=== PATIENT | male | born 1970 | race Caucasian/White ===

== ENCOUNTER → 2023-05-29 07:53 | Outpatient (REF) | payer BC, SELFPAY | LOC: DHSLP 07:53 | PROVIDERS: ATTENDING PHYSICIAN Internal Medicine; FAMILY PHYSICIAN Internal Medicine | DX: G47.33 Obstructive sleep apnea (adult) (pediatric) (principal) | CPT/HCPCS: 95800 ==

== ENCOUNTER → 2023-09-16 16:33 | Outpatient (REF) | payer BC, SELFPAY | LOC: REG 16:33 | PROVIDERS: ATTENDING PHYSICIAN Internal Medicine | DX: R53.83 Other fatigue (principal); W57.XXXS Bitten or stung by nonvenomous insect and other nonvenomous arthropods, sequela | CPT/HCPCS: 36415; 86618 ==

== ENCOUNTER → 2024-01-22 07:18 | Outpatient (REF) | payer BC, SELFPAY ==
[2024-01-22 08:41] LABS: % Eosinophils 3.5 % (0-6); % Immature Granulocytes 0.4 % (0-0.5); % Lymphocytes 19.9 % (20.5-51.1); % Monocytes 6.8 % (1.7-9.3); % Neutrophils 68.4 % (42.2-75.2); Absolute Basophils 0.1 10^3/uL (0-0.2); Absolute Eosinophils 0.2 10^3/uL (0-0.7); Absolute Monocytes 0.4 10^3/uL (0.1-0.6); Absolute Neutrophils 3.5 10^3/uL (1.4-6.5); Hematocrit 43.1 % (39.0-52.0); Hemoglobin 14.4 g/dL (13.0-18.0); Mean Corp Hgb Conc. 33.4 g/dL (33.0-37.0); Mean Corpuscular Hgb 30.9 pg (27.0-31.0); Mean Corpuscular Volume 92.5 fL (80.0-94.0); Nucleated Red Blood Cells % 0 % (-); Platelet Count 214 10^3/uL (130-400); Red Blood Cell Count 4.66 10^6/uL (4.70-6.10); Red Cell Dist. Width 12.3 % (11.5-14.5); White Blood Cell Count 5.1 10^3/uL (4.8-10.8)
[2024-01-22 08:45] LABS: Urine Albumin Negative (Neg - Trace); Urine Bilirubin Negative (Negative); Urine Character Clear (Clear); Urine Color Yellow; Urine Glucose Negative (Negative); Urine Ketone Negative (Negative); Urine Leukocyte Negative (Negative); Urine Nitrite Negative (Negative); Urine Occult Blood Trace (Negative); Urine Specific Gravity 1.015 (<1.030); Urine Urobilinogen Negative (Neg - 1+)
[2024-01-22 09:15] LABS: ALT (SGPT) 22 U/L (0-50); AST (SGOT) 27 U/L (17-59); Albumin 4.6 g/dl (3.5-5.0); Alkaline Phosphatase 77 U/L (38-126); Blood Urea Nitrogen 24 mg/dl (9-20); Calcium 9.3 mg/dl (8.4-10.2); Carbon Dioxide 28 mmol/L (22-30); Chloride 100 mmol/L (98-107); Glucose 114 mg/dl (70-99); HDL Cholesterol 76 mg/dl; LDL Cholesterol, Calculated 71 mg/dl; Potassium 4.6 mmol/L (3.5-5.1); Sodium 139 mmol/L (135-145); Total Bilirubin 0.6 mg/dl (0.2-1.3); Total Cholesterol 159 mg/dl (50-199); Total Protein 6.9 g/dl (6.3-8.2); Triglyceride 61 mg/dl (10-149); Very Low Density Lipoprotein 12 mg/dl (0-30); eGFR > 60.00
[2024-01-22 09:31] LABS: Free T3 3.56 pg/ml (2.77-5.27); Free T4 1.07 ng/dl (0.78-2.19); Vitamin D, 25-OH*** 32.1 ng/mL (30-80)
[2024-01-22 09:43] LABS: PSA, Total - Screen 1.14 ng/ml (0.0-4.0); TSH 2.09 uIU/ml (0.47-4.68)
[2024-01-22 10:03] LABS: Vitamin B12 628 pg/ml (239-931)
[2024-01-22 10:37] LABS: Urine Squamous Cell 0-2 /LPF (Few)
[2024-01-22 10:40] LABS: Urine Red Blood Cell 0-2 /HPF (0-2)
[2024-01-22 10:41] LABS: Urine White Cell 0-2 /HPF (0-5)
[2024-01-22 12:05] LABS: Glycohemoglobin (HgbA1c) 5.7 % (4.0-5.6)
[2024-01-23 20:30] LABS: Zinc 106.8 ug/dL (60.0-120.0)
== END ==
LOC: REG 07:18
PROVIDERS: ATTENDING PHYSICIAN Surgery; FAMILY PHYSICIAN Internal Medicine
DX: Z00.00 Encounter for general adult medical examination without abnormal findings (principal)
CPT/HCPCS: 36415; 80053; 80061; 81003; 81015; 82306; 82607; 83036; 84439; 84443; 84481; 84630; 85025; G0103

== ENCOUNTER → 2024-11-05 11:04 | Outpatient (REF) | payer SELFPAY | LOC: RAD 11:04 | PROVIDERS: ATTENDING PHYSICIAN Internal Medicine Cardiovascular Disease; FAMILY PHYSICIAN Internal Medicine | DX: E78.5 Hyperlipidemia, unspecified (principal) | CPT/HCPCS: 75571 ==

== ENCOUNTER → 2024-12-02 16:08 | Outpatient (REF) | payer BC, SELFPAY | LOC: RCS 16:08 | PROVIDERS: ATTENDING PHYSICIAN Internal Medicine Cardiovascular Disease; FAMILY PHYSICIAN Internal Medicine | DX: E78.5 Hyperlipidemia, unspecified (principal) | CPT/HCPCS: 93306 ==